=== PATIENT | female | born 1990 | race American Indian/Alaskan Native ===

== ENCOUNTER 2019-09-13 23:56 | Emergency (ER) | payer MEDICAID ==
--- NOTE | 2019-09-14 00:27 | EDM.PDOC ---
ED HPI GENERAL MEDICAL PROBLEM - General Chief Complaint: General Stated Complaint: MED[facility] Time Seen by Provider: 09/14/19 00:05 Source of Information: Reports: Patient, EMS History Limitations: Reports: No Limitations - History of Present Illness INITIAL COMMENTS - FREE TEXT/NARRATIVE: 29-year-old female who normally gets 4 mg of clonazepam at night, apparently accidentally got an extra 4 mg and also a dose of 50 mg of Seroquel of another patients. The nursing staff felt it was necessary to send her in by ambulance to be evaluated. I doubt if poison control or any physician was contacted or consulted as I am sure this patient is going to be fine. At this point she feels a little tired but she is perfectly stable. Associated Symptoms: Reports: No Other Symptoms - Related Data Allergies Allergy/AdvReac Type Severity Reaction Status Date / Time azithromycin [From Zithromax] Allergy Cannot Verified 09/13/19 23:57 Remember Home Meds: Home Meds ARIPiprazole [Abilify] 30 mg PO DAILY 09/13/19 [History] Ascorbate Calcium [Vitamin C] 500 mg PO DAILY 09/13/19 [History] Benztropine [Cogentin] 0.5 mg PO ASDIRECTED PRN 09/13/19 [History] Benztropine [Cogentin] 0.5 mg PO DAILY 09/13/19 [History] Citalopram [Citalopram HBr] 20 mg PO DAILY 09/13/19 [History] Melatonin 5 mg PO BEDTIME PRN 09/13/19 [History] Multivitamin [Multivitamins] 1 mg PO DAILY 09/13/19 [History] QUEtiapine [SEROquel] 50 mg PO DAILY PRN 09/13/19 [History] Simethicone [Gas Relief 80] 80 mg PO DAILY 09/13/19 [History] buPROPion [buPROPion XL] 150 mg PO DAILY 09/13/19 [History] clonazePAM [Clonazepam] 2 mg PO DAILY PRN 09/13/19 [History] diphenhydrAMINE HCL [Banophen] 25 mg PO ASDIRECTED PRN 09/13/19 [History] Past Medical History Psychiatric History: Reports: Addiction Social & Family History - Tobacco Use Smoking Status *Q: Unknown Ever Smoked ED ROS GENERAL - Review of Systems Review Of Systems: See Below Constitutional: Denies: Fever, Chills Respiratory: Denies: Shortness of Breath GI/Abdominal: Denies: Abdominal Pain, Nausea, Vomiting Neurological: Denies: Headache ED EXAM, GENERAL - Physical Exam Exam: See Below Exam Limited By: No Limitations General Appearance: Alert, No Apparent Distress Eye Exam: Bilateral Eye: Normal Inspection Head: Atraumatic Respiratory/Chest: No Respiratory Distress, Lungs Clear Cardiovascular: Regular Rate, Rhythm Neurological: Alert, Oriented Psychiatric: Normal Affect, Normal Mood Skin Exam: Warm, Dry Course - Vital Signs Last Recorded V/S: Last Vital Signs Temp 97.5 F 09/14/19 00:10 Pulse 76 09/14/19 00:10 Resp 16 09/14/19 00:10 BP 130/74 09/14/19 00:10 Pulse Ox 97 09/14/19 00:10 - Re-Assessments/Exams Free Text/Narrative Re-Assessment/Exam: 09/14/19 00:25 Vitals are normal, no reason to believe that just 4 mg of extra clonazepam and 50 mg of Seroquel is going to seriously harm this patient, especially considering clonazepam is one of her regular daily medications. She will be returned to her alf. Departure - Departure Time of Disposition: 00:43 Disposition: DC/Tfer to [facility] Clinical Impression: Accidental medication overdose Qualifiers: Encounter type: initial encounter Qualified Code(s): T50.901A - Poisoning by unspecified drugs, medicaments and biological substances, accidental ( unintentional), initial encounter - Discharge Information Instructions: Benzodiazepine Overdose Referrals: PCP,None [Primary Care Provider] - Forms: ED Department Discharge Care Plan Goals: No need for extra monitoring tonight, just resume regular doses of medications tomorrow. Return anytime or recheck if concerns Sepsis Event Note - Evaluation Sepsis Screening Result: No Definite Risk - Focused Exam Vital Signs: Vital Signs Temp Pulse Resp BP Pulse Ox 09/14/19 00:10 97.5 F 76 16 130/74 97 09/14/19 00:09 97.5 F 76 16 130/74 97 Date Exam was Performed: 09/14/19 Time Exam was Performed: 00:57
== END 2019-09-14 00:43 ==
LOC: JP.ED 23:56
DX: T42.4X1A Poisoning by benzodiazepines, accidental (unintentional), initial encounter (principal); Z88.1 Allergy status to other antibiotic agents; Z79.899 Other long term (current) drug therapy
CPT/HCPCS: 99281; 99285